=== PATIENT | male | born 1990 | race Two or more races ===

== ENCOUNTER 2016-09-02 20:16 | Emergency (ER) | payer OTHER ==
[~2016-09-02] VITALS: Ht 177.8 cm; Wt 72.6 kg
[~2016-09-02 20:16] MED LIST: IBUPROFEN400 MG ORAL
[2016-09-02] MEDS ORDERED: NKM (20:27)
[2016-09-02 20:39] VITALS: BP 134/86
[2016-09-02] MEDS ORDERED: Bactrim DS (160mg/800mg) tab ORAL ONE (21:00)
[2016-09-02] MEDS ORDERED: cefTRIAXone 1 GM in NS 55 ML IVPB ONE (21:00)
[2016-09-02 21:33] LABS: BASOPHILS % (AUTO) 0.4 % (0.0-2.0); EOSINOPHILS % (AUTO) 0.2 % (0.0-3.0); LYMPHOCYTES % (AUTO) 8.8 % (20.0-45.0); MEAN CORPUSCULAR HEMOGLOBIN 30.6 PG (27.0-31.0); MEAN CORPUSCULAR HGB CONC 33.6 G/DL (32.0-36.0); MEAN CORPUSCULAR VOLUME 91 FL (80-99); MEAN PLATELET VOLUME 7.8 FL (6.5-10.1); MONOCYTES % (AUTO) 7.9 % (1.0-10.0); NEUTROPHILS % (AUTO) 82.8 % (45.0-75.0); PLATELET COUNT 279 K/UL (150-450); RED BLOOD COUNT 4.71 M/UL (4.70-6.10); RED CELL DISTRIBUTION WIDTH 11.1 % (11.6-14.8); WHITE BLOOD COUNT 17.5 K/UL (4.8-10.8)
[2016-09-02 21:44] LABS: ALANINE AMINOTRANSFERASE 17 U/L (3-41); ALBUMIN/GLOBULIN RATIO 1.2 (1.0-2.7); ANION GAP 15 (5-15); ASPARTATE AMINO TRANSFERASE 14 U/L (5-40); CALCIUM 9.5 mg/dL (8.6-10.2); CARBON DIOXIDE 25 mEQ/L (20-30); CHLORIDE 97 mEQ/L (98-107); CREATININE 1.1 mg/dL (0.7-1.2); GLOMERULAR FILTRATION RATE > 60 mL/min (>60); HEMOLYSIS 6; POTASSIUM 3.7 mEQ/L (3.4-4.9); SODIUM 137 mEQ/L (135-145); TOTAL PROTEIN 7.6 g/dL (6.6-8.7)
[2016-09-02] MEDS ORDERED: IBUPROFEN600 MG ORAL (21:51)
[2016-09-02] MEDS ORDERED: KEFLEX500 MG ORAL (21:51)
[2016-09-02] MEDS ORDERED: BACTRIM DS TAB1 EAC1 ORAL (21:51)
[2016-09-02 22:11] VITALS: BP_SYST 129; BP_SYST 134; BP_DIAS 76; BP_DIAS 86
--- NOTE | 2016-09-04 20:36 | Emergency Room Report ---
History of Present Illness General Chief Complaint: Skin Rash/Abscess Source: Patient Present Illness HPI Patient is a 26-year-old male who presented after having a skin rash for the past 3 days. Patient gradual onset of symptoms. Patient stated that he had no prior history of immunocompromise. Patient had reported having some increased pain to the buttock area. He denied any recent trauma. He stated he had previous episode several years ago of staph infection. He denies any IV drug use. Allergies: Coded Allergies: No Known Allergies (Unverified , 08/17/14) Patient History Reviewed Nursing Documentation: PMH: Agreed, PSxH: Agreed Nursing Documentation-PM Past Medical History: No Stated History Review of Systems All Other Systems: negative except mentioned in HPI Physical Exam Vital Signs Date Time Temp Pulse Resp B/P Pulse Ox O2 Delivery O2 Flow Rate FiO2 09/02/16 20:20 100.2 115 18 134/86 96 Room Air Sp02 EP Interpretation: reviewed, normal General Appearance: normal inspection, well appearing, no apparent distress, alert, GCS 15 Head: atraumatic ENT: normal ENT inspection, hearing grossly normal, normal voice Neck: normal inspection, full range of motion, supple, no bony tend Respiratory: normal inspection, lungs clear, normal breath sounds, no respiratory distress, no retraction, no wheezing Cardiovascular #1: regular rate, rhythm, no edema Gastrointestinal: normal inspection, normal bowel sounds, non tender, soft, no guarding, no hernia Genitourinary: no CVA tenderness Musculoskeletal: normal inspection, back normal, normal range of motion Neurologic: normal inspection, alert, oriented x3, responsive, administrative assistant front desk III-XII nml as tested, speech normal Psychiatric: normal inspection, judgement/insight normal, mood/affect normal Skin: no rash, other - small Medical Decision Making Diagnostic Impression: Primary Impression: Cellulitis ER Course Patient presented for skin rash. Differential diagnosis included was not limited to abscess, cellulitis, folliculitis, Fourniere's gangrene,Because of complexity of patient's case laboratory testing and imaging studies were ordered. The patient was given IV fluids as well as IV antibiotics. The patient is advised to have wound rechecked in the next few days. This appears to be a staph infection which does not appear to have abscess formation as of yet.The patient is advised to follow up with primary care doctor in 1-2 days. Patient is advised to return if any worsening condition or if any changes in status that are concerning. Last Vital Signs Date Time Temp Pulse Resp B/P Pulse Ox O2 Delivery O2 Flow Rate FiO2 09/02/16 22:11 100.2 79 18 129/76 98 Room Air Status: improved Disposition: HOME, SELF-CARE Condition: Stable Scripts Ibuprofen* (MOTRIN*) 600 Mg Tablet 600 MG ORAL Q8H Y for For Pain, #30 TAB 0 Refills Prov: Leo Hart 09/02/16 Cephalexin* (KEFLEX*) 500 Mg Capsule 500 MG ORAL EVERY 6 HOURS, #28 CAP 0 Refills Prov: Leo Hart 09/02/16 Trimethoprim/Sulfamethoxazole 160/800* (BACTRIM DS TABLET*) 1 Each Tablet 1 TAB ORAL Q12H, #14 TAB 0 Refills Prov: Leo Hart 09/02/16 Patient Instructions: MRSA Infection, Adult Leo Hart Sep 04, 2016 20:36
== END 2016-09-02 22:11 | disposition home or self-care (01) ==
LOC: EMR 21:41
DX: L03.90 Cellulitis, unspecified (principal)
CPT/HCPCS: 36415; 80053; 85025; 96360; 96374; 99284; J0696

== ENCOUNTER 2016-10-07 19:44 | Emergency (ER) | payer OTHER ==
[~2016-10-07] VITALS: Ht 180.3 cm; Wt 74.8 kg
[~2016-10-07 19:44] MED LIST changes: +BACTRIM DS TAB1 EAC1 ORAL; +IBUPROFEN600 MG ORAL; +KEFLEX500 MG ORAL; +NKM
[2016-10-07] MEDS ORDERED: NKM (20:14)
[2016-10-07 20:18] VITALS: BP 153/96
[2016-10-07 20:42] VITALS: BP 153/96
--- NOTE | 2016-10-07 21:57 | Emergency Room Report ---
History of Present Illness General Chief Complaint: Skin Rash/Abscess Source: Patient Present Illness HPI 26YOM request for herpes test after sexual intercourse with condom with female who told him this morning she has herpes. She is on treatment. No current outbreak. Also had similar exposure to same female 2 weeks ago. Denies dysuria , discharge, rash, ulcers, vesicles or history of STD. Allergies: Coded Allergies: No Known Allergies (Unverified , 08/17/14) Patient History Past Medical History: none Past Surgical History: none Pertinent Family History: none Social History: Denies: alcohol use, drug use, smoking Reviewed Nursing Documentation: PMH: Agreed, PSxH: Agreed Nursing Documentation-PMH Past Medical History: No Stated History Review of Systems All Other Systems: negative except mentioned in HPI Physical Exam Vital Signs Date Time Temp Pulse Resp B/P Pulse Ox O2 Delivery O2 Flow Rate FiO2 10/07/16 20:09 98.2 69 18 153/96 98 Room Air Sp02 EP Interpretation: reviewed, normal General Appearance: normal inspection, well appearing, no apparent distress, alert Head: atraumatic ENT: normal ENT inspection, hearing grossly normal, normal voice Neck: normal inspection, full range of motion, supple, no bony tend Respiratory: normal inspection, lungs clear, normal breath sounds, no respiratory distress, no retraction, no wheezing Cardiovascular #1: regular rate, rhythm, no edema Gastrointestinal: normal inspection, normal bowel sounds, non tender, soft, no guarding, no hernia Genitourinary: no CVA tenderness Musculoskeletal: normal inspection, back normal, normal range of motion, Samira' s Sign negative Neurologic: normal inspection, alert, responsive, speech normal Psychiatric: normal inspection, judgement/insight normal, mood/affect normal Skin: normal inspection, normal color, no rash Lymphatic: normal inspection Medical Decision Making Diagnostic Impression: Primary Impression: Encounter for medical screening examination ER Course Reassured patient unlikely herpes given protected intercourse, asymptomatic Advised to go to [facility] for STD testing Last Vital Signs Date Time Temp Pulse Resp B/P Pulse Ox O2 Delivery O2 Flow Rate FiO2 10/07/16 20:42 98.2 18 153/96 98 Room Air 10/07/16 20:09 69 Status: improved Disposition: HOME, SELF-CARE Condition: Improved Referrals: [facility],REFERRING (PCP) Patient Instructions: Dysuria Additional Instructions: - Please go to nearest [facility] for STD testing - Return to ER for painful urination, penile discharge, weeping open sores on genital area TRICIA MENEZES M.D. Oct 07, 2016 21:57
== END 2016-10-07 20:42 | disposition home or self-care (01) ==
LOC: EMR 20:16
DX: Z11.3 Encounter for screening for infections with a predominantly sexual mode of transmission (principal)
CPT/HCPCS: 99282

== ENCOUNTER 2017-07-15 19:40 | Emergency (ER) | payer OTHER ==
[~2017-07-15] VITALS: Ht 180.3 cm; Wt 72.6 kg
[2017-07-15 20:17] VITALS: BP 120/67
[2017-07-15] MEDS ORDERED: Lidocaine 1% MPF 10mg/ml 5ml INJ ONE (20:30)
--- NOTE | 2017-07-15 20:32 | Emergency Room Report ---
History of Present Illness General Chief Complaint: Male Urogenital Problems Source: Patient Present Illness HPI 27 YO Male Pt. presents to the ED c/o Dysuria and swelling in the left groin area x3 days. Patient reports 5 other 10 in severity dysuria denies penile discharge, rash or lesions. Patient denies fevers, chills, joint pain or abdominal pain. Patient denies testicular pain or swelling. Patient does report on painful cyst in the left testicle. Patient denies recent unprotected intercourse however he is sexually active. Denies hematuria, frequency, or back pain. Denies CP, Palpitations, LOC, AMS, dizziness, Changes in Vision, Sensation , paresthesias, or a sudden severe headache. Allergies: Coded Allergies: No Known Allergies (Unverified , 08/17/14) Patient History Past Medical History: see triage record Past Surgical History: none Pertinent Family History: none Immunizations: UTD Reviewed Nursing Documentation: PMH: Agreed, PSxH: Agreed Nursing Documentation-PMH Past Medical History: No Stated History Review of Systems All Other Systems: negative except mentioned in HPI Physical Exam Vital Signs Date Time Temp Pulse Resp B/P (MAP) Pulse Ox O2 Delivery O2 Flow Rate FiO2 07/15/17 19:53 98.8 76 20 120/67 98 Room Air Sp02 EP Interpretation: reviewed, normal General Appearance: no apparent distress, alert, GCS 15, non-toxic Head: normocephalic, atraumatic Eyes: bilateral eye normal inspection, bilateral eye PERRL ENT: hearing grossly normal, normal voice Neck: full range of motion Respiratory: chest non-tender, lungs clear, normal breath sounds, speaking full sentences Cardiovascular #1: regular rate, rhythm Gastrointestinal: normal bowel sounds, non tender, soft Rectal: deferred Genitourinary: normal inspection, penis normal, scrotum normal, other - Left- sided palpable lymph node versus cyst no erythema in the left inguinal area, no testicular swelling, erythema or external skin lesions. cremasteric reflexes intact. Musculoskeletal: back normal, gait/station normal, normal range of motion, non- tender Neurologic: alert, oriented x3, responsive, motor strength/tone normal, sensory intact, speech normal, grossly normal Psychiatric: judgement/insight normal Skin: normal color, no rash, warm/dry, well hydrated Medical Decision Making PA Attestation Dr. cerda is my supervising Physician whom patient management has been discussed with. Diagnostic Impression: Primary Impression: Urethritis Additional Impression: Swelling, lymph nodes ER Course 27 YO Male Pt. presents to the ED c/o Dysuria and swelling in the left groin area x3 days. Patient reports 5 other 10 in severity dysuria denies penile discharge, rash or lesions. Patient denies fevers, chills, joint pain or abdominal pain. Patient denies testicular pain or swelling. Patient does report on painful cyst in the left testicle. Patient denies recent unprotected intercourse however he is sexually active. Denies hematuria, frequency, or back pain. Denies CP, Palpitations, LOC, AMS, dizziness, Changes in Vision, Sensation , paresthesias, or a sudden severe headache. Ddx considered but are not limited to UTi , Urethritis, LGV, STI, Stone, Cystitis, prostatitis Etl Informatica Developer for PE was: Fausto BULLOCK Vital signs: are WNL, pt. is afebrile H&PE are most consistent with Urethritis ORDERS: none required at this time, benign testicular exam. will treat clinically ED INTERVENTIONS: -250mg Rocephin IM -I do not identify an emergent condition at this time. With current presentation , pt. is stable for close outpatient follow up and conservative treatment. D/ w pt. to return promptly to ED with worsening or new symptoms.- Pt. (and or responsible republican) verbalizes' understanding and agreement with proposed treatment plan.proposed treatment plan. DISCHARGE: At this time pt. is stable for d/c to home. Will provide printed patient care instructions, and any necessary prescriptions. Care plan and follow up instructions have been discussed with the patient prior to discharge. Last Vital Signs Date Time Temp Pulse Resp B/P (MAP) Pulse Ox O2 Delivery O2 Flow Rate FiO2 07/15/17 20:17 98.8 20 120/67 98 Room Air 07/15/17 19:53 76 Disposition: HOME, SELF-CARE Condition: Stable Scripts Phenazopyridine Hcl* (PYRIDIUM*) 200 Mg Tablet 200 MG ORAL THREE TIMES A DAY for 3 Days, #9 TAB 0 Refills Prov: Dennise Kurtz P.A. 07/15/17 Ibuprofen* (MOTRIN*) 600 Mg Tablet 600 MG ORAL THREE TIMES A DAY, #30 TAB 0 Refills Prov: Dennise Kurtz P.A. 07/15/17 Doxycycline Hyclate* (VIBRAMYCIN*) 100 Mg Capsule 100 MG ORAL EVERY 12 HOURS for 7 Days, #14 CAP 0 Refills Prov: Dennise Kurtz 07/15/17 Patient Instructions: Hydrocele, Adult, Urethritis, Adult Additional Instructions: Take medications as directed. Follow up with a Primary Care Provider in 3-5 days, even if your symptoms have resolved. --Please review list of primary care clinics, if you do not already have a primary care provider Return sooner to ED if new symptoms occur, or current symptoms become worse. - Please note that this Emergency Department Report was dictated using [employer]st[employer] keeper technology software, occasionally this can lead to erroneous entry secondary to interpretation by the dictation equipment. Dennise Kurtz Jul 15, 2017 20:32
[2017-07-15] MEDS ORDERED: PHENAZOPYRIDIN200 MG ORAL (20:34)
[2017-07-15] MEDS ORDERED: VIBRAMYCIN100 MG ORAL (20:34)
[2017-07-15] MEDS ORDERED: IBUPROFEN600 MG ORAL (20:34)
[2017-07-15 20:45] VITALS: BP 120/67
== END 2017-07-15 20:45 | disposition home or self-care (01) ==
LOC: EMR 20:00
DX: N34.2 Other urethritis (principal); N50.89 Other specified disorders of the male genital organs
CPT/HCPCS: 96372; 99283; J0696

== ENCOUNTER 2017-12-20 21:50 | Emergency (ER) | payer OTHER ==
[~2017-12-20] VITALS: Ht 180.3 cm; Wt 74.8 kg
[~2017-12-20 21:50] MED LIST changes: +PHENAZOPYRIDIN200 MG ORAL; +VIBRAMYCIN100 MG ORAL
[2017-12-20 22:07] VITALS: BP 131/85
[2017-12-20] MEDS ORDERED: CYCLOBENZAPRINE10 MG ORAL (22:59)
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
[2017-12-20] MEDS ORDERED: Cyclobenzaprine 10mg Tab ORAL ONE (23:15)
[2017-12-20 23:41] VITALS: BP 131/85
== END 2017-12-20 23:41 | disposition home or self-care (01) ==
LOC: EMR 22:21
DX: M54.2 Cervicalgia (principal); V43.52XA Car driver injured in collision with other type car in traffic accident, initial encounter; Y92.410 Unspecified street and highway as the place of occurrence of the external cause; F41.9 Anxiety disorder, unspecified; F32.9 Major depressive disorder, single episode, unspecified
CPT/HCPCS: 99283

== ENCOUNTER 2018-01-02 11:13 | Emergency (ER) | payer OTHER ==
[~2018-01-02] VITALS: Ht 180.3 cm; Wt 72.6 kg
[~2018-01-02 11:13] MED LIST changes: +CYCLOBENZAPRINE10 MG ORAL
[2018-01-02 11:24] VITALS: BP 125/87
[2018-01-02] MEDS ORDERED: BACTRIM DS TAB1 EAC1 ORAL (11:50)
[2018-01-02] MEDS ORDERED: CEPHALEXIN500 MG ORAL (11:50)
[2018-01-02 12:05] VITALS: BP 125/87
--- NOTE | 2018-01-03 07:10 | Emergency Room Report ---
History of Present Illness General Chief Complaint: Skin Rash/Abscess Source: Patient Present Illness HPI 27-year-old male presents to ED with rash to his lower back times one week. States he was told he has "staph". Pain is dull, 5 out of 10, nonradiating. Denies fevers or chills. Denies any discharge. Denies any sick contacts or recent travel. No other aggravating relieving factors. Denies any other associated symptoms Allergies: Coded Allergies: No Known Allergies (Unverified , 08/17/14) Patient History Past Medical History: none Past Surgical History: none Pertinent Family History: none Social History: Denies: smoking, alcohol use, drug use Reviewed Nursing Documentation: PMH: Agreed; PSxH: Agreed Nursing Documentation-PMH Past Medical History: No Stated History Review of Systems All Other Systems: negative except mentioned in HPI Physical Exam Vital Signs Date Time Temp Pulse Resp B/P (MAP) Pulse Ox O2 Delivery O2 Flow Rate FiO2 01/02/18 11:14 97.9 79 16 125/87 96 Room Air 97.9 Sp02 EP Interpretation: reviewed, normal General Appearance: no apparent distress, alert, GCS 15, non-toxic Head: normocephalic Eyes: bilateral eye normal inspection, bilateral eye PERRL ENT: normal ENT inspection Neck: normal inspection Respiratory: normal inspection Cardiovascular #1: normal inspection Gastrointestinal: normal inspection Rectal: deferred Genitourinary: no CVA tenderness Musculoskeletal: normal inspection Neurologic: alert, oriented x3, responsive, motor strength/tone normal, sensory intact, speech normal Psychiatric: judgement/insight normal, memory normal, mood/affect normal, no suicidal/homicidal ideation Skin: other - areas of induration/erythema to L lower back. no fluctuance or discharge Lymphatic: normal inspection Medical Decision Making Diagnostic Impression: Primary Impression: Cellulitis Qualified Codes: L03.90 - Cellulitis, unspecified ER Course Hospital Course 27-year-old male presents to ED with redness, swelling to back Differential diagnoses include: Cellulitis, dermatitis, insect bite, abscess Clinical course Patient placed on stretcher. After initial history, physical exam reveals a young male in no acute distress. On exam there is a site for mild erythema and induration to the L lower back. There is no fluctuance. concern for cellulitis. we will treat with abx, warm compresses Diagnosis - cellulitis stable and discharged to home with prescription for keflex, bactrim. warm compresses. Instructed to followup with PMD. Instructed return to ED if symptoms recur or worsen Last Vital Signs Date Time Temp Pulse Resp B/P (MAP) Pulse Ox O2 Delivery O2 Flow Rate FiO2 01/02/18 12:05 97.9 74 16 125/87 96 Room Air 97.9 Status: improved Disposition: HOME, SELF-CARE Condition: Stable Scripts Trimethoprim/Sulfamethoxazole 160/800* (BACTRIM DS TABLET*) 1 Each Tablet 1 TAB ORAL Q12H, #14 TAB 0 Refills Prov: Chase Buenrostro MD 01/02/18 Cephalexin* (KEFLEX*) 500 Mg Capsule 500 MG ORAL EVERY 6 HOURS for 7 Days, CAP Prov: Chase Buenrostro MD 01/02/18 Referrals: [facility],REFERRING (PCP) Patient Instructions: Cellulitis, [id number] Chase Buenrostro MD Jan 03, 2018 07:10
== END 2018-01-02 12:05 | disposition home or self-care (01) ==
LOC: EMR 11:45
DX: L03.312 Cellulitis of back [any part except buttock and flank] (principal)
CPT/HCPCS: 99284

== ENCOUNTER 2018-01-25 12:27 | Emergency (ER) | payer OTHER ==
[~2018-01-25] VITALS: Ht 180.3 cm; Wt 72.6 kg
[~2018-01-25 12:27] MED LIST changes: +CEPHALEXIN500 MG ORAL
[2018-01-25 12:58] VITALS: BP 112/79
--- NOTE | 2018-01-25 13:12 | Emergency Room Report ---
History of Present Illness General Chief Complaint: Skin Rash/Abscess Source: Patient Present Illness HPI Pt. presents to the ED c/o itchy rash on the neck x 3 days. Denies pain. Reports he was treated for cellulitis of a different location and finished abx 1 week ago: Keflex and Bactrim. Pt. denies fevers, chills or swollen tender lymph nodes. Denies lesions/rashes elsewhere on the body. Denies new medications or body washes or creams. Denies swelling of the lips, tongue , throat or airway. Denies wheezing, or shortness of breath. Denies recent travel , recent illness or ill contacts. denies blisters, oral lesions, or sloughing of the skin. Allergies: Coded Allergies: No Known Allergies (Unverified , 08/17/14) Patient History Past Medical History: see triage record Past Surgical History: none Pertinent Family History: none Reviewed Nursing Documentation: PMH: Agreed; PSxH: Agreed Nursing Documentation-PMH Hx Cardiac Problems: No - cellulitis Review of Systems All Other Systems: negative except mentioned in HPI Physical Exam Vital Signs Date Time Temp Pulse Resp B/P (MAP) Pulse Ox O2 Delivery O2 Flow Rate FiO2 01/25/18 12:46 98.0 67 18 112/79 97 Room Air 98.1 Sp02 EP Interpretation: reviewed, normal General Appearance: no apparent distress, alert, GCS 15, non-toxic Head: normocephalic, atraumatic Eyes: bilateral eye normal inspection, bilateral eye PERRL ENT: hearing grossly normal, no angioedema, normal voice, other - no swelling of the lips or tongue. no stridor Neck: full range of motion, other - urticarial type rash around the lower portion of neck and upper chest. no blisters or vesicles. Respiratory: chest non-tender, lungs clear, normal breath sounds, no respiratory distress, no wheezing, speaking full sentences Cardiovascular #1: regular rate, rhythm, no edema Musculoskeletal: back normal, gait/station normal, normal range of motion, non- tender Neurologic: alert, oriented x3, responsive, motor strength/tone normal, sensory intact, speech normal, grossly normal Psychiatric: judgement/insight normal Skin: normal color, warm/dry, well hydrated, rash - urticarial type rash around the lower portion of neck and upper chest. no blisters or vesicles. Lymphatic: no adenopathy Medical Decision Making PA Attestation Dr. cerda is my supervising Physician whom patient management has been discussed with. Diagnostic Impression: Primary Impression: Contact dermatitis Qualified Codes: L24.9 - Irritant contact dermatitis, unspecified cause Additional Impression: Rash and other nonspecific skin eruption ER Course Pt. presents to the ED c/o itchy rash on the neck x 3 days. Denies pain. Reports he was treated for cellulitis of a different location and finished abx 1 week ago: Keflex and Bactrim. Pt. denies fevers, chills or swollen tender lymph nodes. Denies lesions/rashes elsewhere on the body. Denies new medications or body washes or creams. Denies swelling of the lips, tongue , throat or airway. Denies wheezing, or shortness of breath. Denies recent travel , recent illness or ill contacts. denies blisters, oral lesions, or sloughing of the skin. Ddx considered but are not limited to cellulitis, scabies, shingles, varicella, dermatitis, urticaria, eczema, tinea, viral exanthem, SJS Vital signs: are WNL, pt. is afebrile H&PE are most consistent with Contact Dermatitis- No evidence of impending airway compromise, angioedema or anaphylaxis. urticarial type rash around the lower portion of neck and upper chest. no blisters or vesicles. ORDERS: none required at this time, the diagnosis is clinical ED INTERVENTIONS: None required at this time. DISCHARGE: At this time pt. is stable for d/c to home. Will provide printed patient care instructions, and any necessary prescriptions. Care plan and follow up instructions have been discussed with the patient prior to discharge. Last Vital Signs Date Time Temp Pulse Resp B/P (MAP) Pulse Ox O2 Delivery O2 Flow Rate FiO2 01/25/18 12:58 98.1 80 18 112/79 97 Room Air 98.1 Disposition: HOME, SELF-CARE Condition: Stable Scripts Prednisone (Prednisone) 20 Mg Tablet 20 MG PO DAILY for 3 Days, #3 TAB Prov: Dennise Kurtz 01/25/18 Hydroxyzine HCl (Hydroxyzine HCl) 25 Mg Tablet 25 MG ORAL FOUR TIMES A DAY PRN for Itching, #15 TAB Prov: Dennise Kurtz 01/25/18 Hydrocortisone (Hydrocortisone Cream 2.5%) Y Cream.appl 1 APPLIC TP BID, #28.3 GM Prov: Dennise Kurtz 01/25/18 Departure Forms: Return to Work Return to Work Date: Jan 28, 2018 Work Restrictions: None Return to Full Activity: Jan 28, 2018 Patient Instructions: Contact Dermatitis, [id number], Rash Additional Instructions: Take medications as directed. Follow up with a Primary Care Provider in 3-5 days, even if your symptoms have resolved. --Please review list of primary care clinics, if you do not already have a primary care provider Return sooner to ED if new symptoms occur, or current symptoms become worse. - Please note that this Emergency Department Report was dictated using [facility] Centers[employer] office operator supervisor technology software, occasionally this can lead to erroneous entry secondary to interpretation by the dictation equipment. Dennise Kurtz Jan 25, 2018 13:12
[2018-01-25] MEDS ORDERED: PREDNISONE20 M1 PO (13:14)
[2018-01-25] MEDS ORDERED: HYDROCORTISONE30 G2 TP (13:14)
[2018-01-25] MEDS ORDERED: ATARAX25 MG ORAL (13:14)
[2018-01-25 13:25] VITALS: BP 112/79
== END 2018-01-25 13:24 | disposition home or self-care (01) ==
LOC: EMR 13:00
DX: L25.9 Unspecified contact dermatitis, unspecified cause (principal)
CPT/HCPCS: 99283

== ENCOUNTER 2018-03-13 11:26 | Emergency (ER) | payer OTHER ==
[~2018-03-13] VITALS: Ht 180.3 cm; Wt 72.6 kg
[~2018-03-13 11:26] MED LIST changes: +ATARAX25 MG ORAL; +HYDROCORTISONE30 G2 TP; +PREDNISONE20 M1 PO
[2018-03-13] MEDS ORDERED: Methocarbamol 500mg tab ORAL ONE (12:15)
[2018-03-13] MEDS: Ketorolac 30mg Inj IM ONE ×2 (12:25→12:30)
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
[2018-03-13] MEDS ORDERED: IBUPROFEN600 MG ORAL (13:20)
[2018-03-13] MEDS ORDERED: LIDOCAINE700 M1 TP (13:20)
[2018-03-13] MEDS ORDERED: ROBAXIN500 MG PO (13:20)
[2018-03-13] MEDS ORDERED: Ketorolac 30mg Inj IM ONE (13:30)
[2018-03-13] MEDS ORDERED: Ketorolac 30mg Inj ONE (13:31)
[2018-03-13 13:37] VITALS: BP 122/80
== END 2018-03-13 13:37 | disposition home or self-care (01) ==
LOC: EMR 12:20
DX: M62.838 Other muscle spasm (principal); M54.2 Cervicalgia; M54.9 Dorsalgia, unspecified; V43.62XA Car passenger injured in collision with other type car in traffic accident, initial encounter; W22.12XA Striking against or struck by front passenger side automobile airbag, initial encounter; Y92.411 Interstate highway as the place of occurrence of the external cause
CPT/HCPCS: 72125; 99284; J1885

== ENCOUNTER 2018-03-24 18:37 | Emergency (ER) | payer OTHER ==
[~2018-03-24] VITALS: Ht 180.3 cm; Wt 77.1 kg
[~2018-03-24 18:37] MED LIST changes: +LIDOCAINE700 M1 TP; +ROBAXIN500 MG PO
[2018-03-24 19:14] VITALS: BP 136/81
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
[2018-03-24] MEDS ORDERED: ZYRTEC10 MG ORAL (20:05)
[2018-03-24] MEDS ORDERED: LIDOCAINE VISC100 ML ORAL (20:05)
[2018-03-24] MEDS ORDERED: TYLENOL EXTRA500 MG ORAL (20:05)
[2018-03-24 20:19] VITALS: BP 136/81
[2018-03-24] MEDS ORDERED: KETOCONAZOLE120 ML TP (20:19)
== END 2018-03-24 20:27 | disposition home or self-care (01) ==
LOC: EMR 19:29
DX: J02.9 Acute pharyngitis, unspecified (principal); R09.82 Postnasal drip
CPT/HCPCS: 99283

== ENCOUNTER 2018-11-28 21:48 | Emergency (ER) | payer OTHER ==
[~2018-11-28] VITALS: Ht 177.8 cm; Wt 77.1 kg
[~2018-11-28 21:48] MED LIST changes: +KETOCONAZOLE120 ML TP; +LIDOCAINE VISC100 ML ORAL; +TYLENOL EXTRA500 MG ORAL; +ZYRTEC10 MG ORAL
--- NOTE | 2018-11-28 22:05 | NUR ---
ER Nurse Note: Pt coming from home c/o chest pain since 3 weeks ago. Pt stated the pain is constant aching pain from movement on the left side of chest, non radiating. Skin intact, no signs of distress, VSS. Pt stated hx of heart surgery 4 years ago. EKG done; LINDA de león. ERMD at pt side; will continue to montior.
[2018-11-28 22:15] VITALS: BP 120/81
[2018-11-28] MEDS ORDERED: ADVIL200 M2 ORAL (22:35)
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
--- NOTE | 2018-11-28 22:43 | Diagnostic Imaging Report ---
EXAM: XR Chest, 1 View CLINICAL HISTORY: CP TECHNIQUE: Frontal view of the chest. COMPARISON: CT scan 05/30/16 FINDINGS: Lungs: No visualized consolidation. Pleural space: No significant effusion. No pneumothorax. Heart: Stable cardiomediastinal silhouette size and appearance with vascular graft noted in the proximal descending aorta. Mediastinum: See above. Bones/joints: No acute findings. IMPRESSION: No acute radiographic findings.
[2018-11-28 22:50] VITALS: BP 120/81
--- NOTE | 2018-11-28 22:50 | NUR ---
ER Nurse Note: All orders completed per ERMD orders. Pt seen, treated, medically cleared for discharge by ERMD. Discharge instructions and prescriptions given with repeat verbazliaion by pt. Instructed pt to follow up with primary care provider within 2-3 days. Pt a&ox4, VSS, no signs of distress; denies shortness of breath, chest pain. ID band removed. Pt left with all belongings with steady gait via own transportation.
== END 2018-11-28 22:50 | disposition home or self-care (01) ==
LOC: EMR 22:13
DX: R07.9 Chest pain, unspecified (principal); I10 Essential (primary) hypertension
CPT/HCPCS: 71045; 93005; 99283

== ENCOUNTER 2019-06-17 17:42 | Emergency (ER) | payer OTHER ==
[~2019-06-17] VITALS: Ht 180.3 cm; Wt 79.4 kg
[~2019-06-17 17:42] MED LIST changes: +ADVIL200 M2 ORAL
[2019-06-17 18:00] VITALS: BP 120/84
[2019-06-17 18:10] VITALS: BP 120/84
--- NOTE | 2019-06-17 18:10 | NUR ---
ED Nurse Note: Patient arrived to ED from home complaining of body aches, diarrhea, fever for 1 day. He states that the s/s started yesterday evening. Patient's appetite has been decreased . Patient AxO x 4, resting comfortably, no s/s of acute distress.
--- NOTE | 2019-06-17 18:27 | Emergency Room Report ---
History of Present Illness General Chief Complaint: Flu Like Symptoms Source: Patient Present Illness HPI 29-year-old male with no significant past medical history here complaining of 2 days of generalized body ache, epigastric abdominal pain, 3 bouts of nonbloody emesis, and 2 bouts of nonbloody diarrhea. Also complains of cough and congestion. Reports that has not taken medication for symptom relief. Patient reports that he smokes tobacco daily as well as marijuana use. Denies any recent travel or sick contact. Denies chest pain, shortness of breath, palpitation, urinary symptoms. Allergies: Coded Allergies: No Known Allergies (Unverified , 03/24/18) Patient History Past Medical History: see triage record Past Surgical History: unable to obtain Pertinent Family History: none Social History: Reports: smoking Reviewed Nursing Documentation: PMH: Agreed; PSxH: Agreed Nursing Documentation-PMH Past Medical History: No History, Except For Hx Cardiac Problems: Yes - aorta surgery Hx Hypertension: Yes Hx Asthma: No - pneumonia Review of Systems All Other Systems: negative except mentioned in HPI Physical Exam Vital Signs Date Time Temp Pulse Resp B/P (MAP) Pulse Ox O2 Delivery O2 Flow Rate FiO2 06/17/19 17:53 100.2 104 20 119/84 (96) 95 Room Air Sp02 EP Interpretation: reviewed, normal General Appearance: no apparent distress, alert, GCS 15, non-toxic Head: normocephalic, atraumatic Eyes: bilateral eye normal inspection, bilateral eye PERRL ENT: hearing grossly normal, normal pharynx, no angioedema, normal voice Neck: full range of motion, supple, no meningismus, no bony tend, supple/symm/ no masses Respiratory: chest non-tender, lungs clear, normal breath sounds, no rhonchi, no respiratory distress, no retraction, no wheezing, speaking full sentences Cardiovascular #1: regular rate, rhythm, no edema, no JVD, no murmur Gastrointestinal: normal bowel sounds, non tender, soft, no mass, no peritonitis, no bruit, non-distended, no guarding, no pulsatile mass, no rebound Rectal: deferred Genitourinary: no CVA tenderness Musculoskeletal: back normal, normal range of motion, gait/station normal, non- tender Neurologic: alert, motor strength/tone normal, oriented x3, sensory intact, responsive, speech normal Psychiatric: judgement/insight normal, memory normal, mood/affect normal, no suicidal/homicidal ideation Skin: no rash Lymphatic: no adenopathy Medical Decision Making PA Attestation All my diagnosis and treatment plans were reviewed ad discussed with my supervising physician Dr. Buenrostro Diagnostic Impression: Primary Impression: Influenza Additional Impression: Abdominal pain ER Course 29-year-old male with no significant past medical history here complaining of 2 days of generalized body ache, epigastric abdominal pain, 3 bouts of nonbloody emesis, and 2 bouts of nonbloody diarrhea. Also complains of cough and congestion. Reports that has not taken medication for symptom relief. Patient reports that he smokes tobacco daily as well as marijuana use. Denies any recent travel or sick contact. Denies chest pain, shortness of breath, palpitation, urinary symptoms. Ddx considered but are not limited to: strep pharyngitis, URI, tonsillitis, peritonsillar abscess, influneza Vital signs: are WNL, pt. is afebrile H&PE are most consistent with: Influenza ORDERS: Tamiflu, guaifenesin ,Zofran, dicyclomine ED INTERVENTIONS: None required at this time. DISCHARGE: At this time pt. is stable for d/c to home. Will provide printed patient care instructions, and any necessary prescriptions. Care plan and follow up instructions have been discussed with the patient prior to discharge. keep a BRAT Diet, increase oral hydration, take medication as directed, follow- up with your primary care physician, if worsening symptoms return to the emergency room Last Vital Signs Date Time Temp Pulse Resp B/P (MAP) Pulse Ox O2 Delivery O2 Flow Rate FiO2 06/17/19 17:53 100.2 104 20 119/84 (96) 95 Room Air Disposition: HOME, SELF-CARE Condition: Stable Scripts Guaifenesin* (GUAIFENESIN) 100 Mg/5 Ml Liquid 5 ML ORAL Q8H, #120 ML 0 Refills Prov: Mirza Caldwell 06/17/19 Dicyclomine Hcl* (DICYCLOMINE HCL*) 10 Mg Capsule 10 MG ORAL TID, #10 CAP Prov: Mirza Caldwell 06/17/19 Ondansetron (Zofran) 4 Mg Tablet 4 MG ORAL Q6H PRN for Nausea & Vomiting, #12 TAB Prov: Mirza Caldwell 06/17/19 Oseltamivir Phosphate (Tamiflu) 75 Mg Capsule 75 MG ORAL TWICE A DAY for 5 Days, #10 CAP Prov: Mirza Caldwell 06/17/19 Patient Instructions: Abdominal Pain, Adult, [id number], Food Choices to Help Relieve Diarrhea, Adult, Upper Respiratory Infection, Adult Additional Instructions: Take medication as directed, follow with your primary care provider, if worsening symptoms return to the emergency room Mirza Caldwell Jun 17, 2019 18:27
[2019-06-17] MEDS ORDERED: GUAIFENESI100 MG/5 M ORAL (18:28)
[2019-06-17] MEDS ORDERED: ZOFRAN4 M1 ORAL (18:28)
[2019-06-17] MEDS ORDERED: DICYCLOMINE HCL10 MG ORAL (18:28)
[2019-06-17] MEDS ORDERED: TAMIFLU75 MG ORAL (18:28)
[2019-06-17 18:31] VITALS: BP 122/80
--- NOTE | 2019-06-17 18:31 | NUR ---
ER DISCHARGE NOTE: Patient is cleared to be discharged per ERMD, pt is aox4, on room air, with stable vital signs. pt was given dc and prescription instructions, pt was able to verbalize understanding, pt id band removed without complications. pt is able to ambulate with steady gait. pt took all belongings.
== END 2019-06-17 18:31 | disposition home or self-care (01) ==
LOC: EMR 18:30
DX: J11.1 Influenza due to unidentified influenza virus with other respiratory manifestations (principal); R10.13 Epigastric pain; I10 Essential (primary) hypertension; F17.200 Nicotine dependence, unspecified, uncomplicated
CPT/HCPCS: 99282

== ENCOUNTER 2019-11-23 15:59 | Emergency (ER) | payer OTHER ==
[~2019-11-23] VITALS: Ht 177.8 cm; Wt 79.4 kg
[~2019-11-23 15:59] MED LIST changes: +DICYCLOMINE HCL10 MG ORAL; +GUAIFENESI100 MG/5 M ORAL; +TAMIFLU75 MG ORAL; +ZOFRAN4 M1 ORAL
--- NOTE | 2019-11-23 16:10 | NUR ---
ED Nurse Note: pt walked in from home c/o sore throat x 4 days. pt had video chat with PCP who prescribed him augmentin a few days ago, no imporvement of symptoms. denies cough. reports difficulty swallowing, 10/10 pain
[2019-11-23 16:13] VITALS: BP 142/94
--- NOTE | 2019-11-23 16:35 | Emergency Room Report ---
History of Present Illness General Chief Complaint: Sore Throat Source: Patient Present Illness HPI 29 YO male presents to the ED c/o 04/[address] x 4 days. Pt. reports he has been taking Augmentin x 4 days which was rx'd to him along with "street pain medications". with little to no relief of his symptoms. Pt. denies fevers. He reports burning sensation and moderate tenderness to the roof of his mouth and his throat. He denies hx of HIV or immune compromise. Pt. denies changes in his voice. Pt. denies inability to tolerate his own secretions. He denies visible sores in his mouth. Denies recent travel. Denies contact with persons who have tested positive for or are under investigation/quarantine for COVID- 19. He reports pain is exacerbated with swallowing /eating. Reports pain is bilateral and not worse on one side. Pt. denies cough, nasal congestion, neck pain/stiffness. Denies nausea or vomiting. 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 Patient History Past Medical History: see triage record Past Surgical History: none Pertinent Family History: none Social History: Reports: smoking Reviewed Nursing Documentation: PMH: Agreed; PSxH: Agreed Nursing Documentation-PMH Hx Cardiac Problems: Yes - aorta surgery Hx Hypertension: Yes Hx Asthma: No - pneumonia Review of Systems All Other Systems: negative except mentioned in HPI Physical Exam Vital Signs Date Time Temp Pulse Resp B/P (MAP) Pulse Ox O2 Delivery O2 Flow Rate FiO2 11/23/19 16:10 98.8 85 19 142/94 (110) 96 Room Air Sp02 EP Interpretation: reviewed, normal General Appearance: no apparent distress, alert, GCS 15, non-toxic Head: normocephalic, atraumatic Eyes: bilateral eye normal inspection, bilateral eye PERRL ENT: hearing grossly normal, normal voice, uvula midline, moist mucus membranes , pharyngeal erythema, other - mild strawberry tongue appearance, no exudates no appreciable swelling of the tonsills bilaterally. no oral lesions noted. Neck: full range of motion, no meningismus Respiratory: chest non-tender, lungs clear, normal breath sounds, no respiratory distress, no wheezing, speaking full sentences Cardiovascular #1: regular rate, rhythm Musculoskeletal: normal range of motion, gait/station normal, non-tender Neurologic: alert, motor strength/tone normal, oriented x3, sensory intact, responsive, speech normal Psychiatric: judgement/insight normal Skin: no rash, normal color Lymphatic: no adenopathy Medical Decision Making PA Attestation Dr. Hooper is my supervising Physician whom patient management has been discussed with. Diagnostic Impression: Primary Impression: Sore throat Additional Impression: Esophagitis, acute ER Course 29 YO male presents to the ED c/o 04/[address] x 4 days. Pt. reports he has been taking Augmentin x 4 days which was rx'd to him along with "street pain medications". with little to no relief of his symptoms. Pt. denies fevers. He reports burning sensation and moderate tenderness to the roof of his mouth and his throat. He denies hx of HIV or immune compromise. Pt. denies changes in his voice. Pt. denies inability to tolerate his own secretions. He denies visible sores in his mouth. Denies recent travel. Denies contact with persons who have tested positive for or are under investigation/quarantine for COVID- 19. He reports pain is exacerbated with swallowing /eating. Reports pain is bilateral and not worse on one side. Pt. denies cough, nasal congestion, neck pain/stiffness. Denies nausea or vomiting. Ddx considered but are not limited to: pharyngitis, strep, BRIDGE MECHANIC, ludwigs angina, URI Vital signs: are WNL, pt. is afebrile H&PE are most consistent with: esophagitis most likely viral in etiology. Pt. does not meet Centor criteria, He is also already taking appropriate antibiotic for strep. No obvious visible or palpable abscess noted. Pt. NAD, non-toxic in appearance. Pt. is able to tolerate his own secretions and speak full sentences with a normal voice. ORDERS: None required at this time as the diagnosis is clinical ED INTERVENTIONS: -Lidocaine Viscous PO -I do not identify an emergent condition at this time. With current presentation , pt. is stable for close outpatient follow up and conservative treatment. D/ w pt. to return promptly to ED with worsening or new symptoms.- Pt. verbalizes' understanding and agreement with proposed treatment plan. D/w pt. signs and symptoms that would represents developing abscess. DISCHARGE: At this time pt. is stable for d/c to home. Will provide printed patient care instructions, and any necessary prescriptions. Care plan and follow up instructions have been discussed with the patient prior to discharge. Last Vital Signs Date Time Temp Pulse Resp B/P (MAP) Pulse Ox O2 Delivery O2 Flow Rate FiO2 11/23/19 16:13 98.8 85 19 142/94 96 Room Air Disposition: HOME, SELF-CARE Condition: Stable Scripts Acyclovir* (ACYCLOVIR*) 400 Mg Tablet 400 MG ORAL FIVE TIMES A DAY for 7 Days, #28 TAB Prov: Dennise Kurtz 11/23/19 Ibuprofen* (MOTRIN*) 600 Mg Tablet 600 MG ORAL THREE TIMES A DAY, #30 TAB Prov: Dennise Kurtz 11/23/19 Lidocaine HCl 2% Viscous (Lidocaine HCl 2% Viscous) 100 Ml Solution 10 ML ORAL QID, #220 ML Prov: Dennise Kurtz 11/23/19 Referrals: NOT CHOSEN [facility],REFERRING (PCP) Patient Instructions: Esophagitis, Sore Throat Additional Instructions: Take medications as directed. Discontinue taking medications that are not prescribed to you. Xanax is for psychological disorders, not a sore throat. Follow up with a Primary Care Provider in 3-5 days, even if your symptoms have resolved. --Please review list of primary care clinics, if you do not already have a primary care provider Return sooner to ED if new symptoms occur, or current symptoms become worse. - Please note that this Emergency Department Report was dictated using [employer] hand technology software, occasionally this can lead to erroneous entry secondary to interpretation by the dictation equipment. Dennise Kurtz November 23, 2019 16:35
[2019-11-23] MEDS ORDERED: Lidocaine 2% Visc 15ml soln ORAL ONE (16:45)
[2019-11-23] MEDS ORDERED: ACYCLOVIR400 MG ORAL (16:46)
[2019-11-23] MEDS ORDERED: IBUPROFEN600 M1 ORAL (16:46)
[2019-11-23] MEDS ORDERED: LIDOCAINE VISC100 ML ORAL (16:46)
[2019-11-23 16:50] VITALS: BP 142/94
== END 2019-11-23 16:50 | disposition home or self-care (01) ==
LOC: EMR 16:24
DX: R07.0 Pain in throat (principal); F17.200 Nicotine dependence, unspecified, uncomplicated; I10 Essential (primary) hypertension; K22.4 Dyskinesia of esophagus
CPT/HCPCS: 99282

== ENCOUNTER 2020-04-21 01:07 | Emergency (ER) | payer OTHER ==
[~2020-04-21] VITALS: Ht 180.3 cm; Wt 77.1 kg
[~2020-04-21 01:07] MED LIST changes: +ACYCLOVIR400 MG ORAL; +IBUPROFEN600 M1 ORAL
[2020-04-21 01:15] VITALS: BP 112/67
--- NOTE | 2020-04-21 01:37 | Emergency Room Report ---
History of Present Illness General Chief Complaint: Dizziness Source: Patient Present Illness HPI This is a 29-year-old male with no past medical history his presents with chief complaint of fever chills. Onset in the last few hours. He felt body pain. No cough or congestion. He said for the last few days he has burning sensation when he urinate. No discharge. No back pain. Has not take anything for this. Said he felt dizzy per especially when he get up and walk. Denies any sick contact. Allergies: Coded Allergies: No Known Allergies (Unverified , 03/24/18) COVID-19 Screening Contact w/high risk pt: No Recent Travel to affected area: No Experienced COVID-19 symptoms?: No COVID-19 Testing performed DRILL HAND: No Patient History Past Medical History: see triage record, old chart reviewed Past Surgical History: none Pertinent Family History: none Social History: Denies: smoking Immunizations: other Reviewed Nursing Documentation: PMH: Agreed; PSxH: Agreed Nursing Documentation-PMH Past Medical History: No Stated History Hx Cardiac Problems: Yes - aorta surgery Hx Hypertension: Yes Hx Asthma: No - pneumonia Review of Systems Constitutional: Reports: chills, fever Eye: Denies: eye pain, blurred vision ENT: Denies: ear pain, nose congestion, throat swelling Respiratory: Denies: cough, shortness of breath Cardiovascular: Denies: chest pain, palpitations Gastrointestinal: Denies: abdominal pain, diarrhea, nausea, vomiting Musculoskeletal: Denies: back pain, joint pain Skin: Denies: rash Neurological: Denies: headache, numbness Endocrine: Denies: increased thirst, increased urine Hematologic/Lymphatic: Denies: easy bruising All Other Systems: negative except mentioned in HPI Physical Exam Vital Signs Date Time Temp Pulse Resp B/P (MAP) Pulse Ox O2 Delivery O2 Flow Rate FiO2 04/21/20 01:15 98.6 102 20 112/67 (82) 94 Room Air Vitals normal Sp02 EP Interpretation: reviewed, normal General Appearance: well appearing, no apparent distress, alert Head: normocephalic, atraumatic Eyes: bilateral eye PERRL, bilateral eye EOMI ENT: hearing grossly normal, normal pharynx Neck: full range of motion, supple, no meningismus Respiratory: chest non-tender, lungs clear, normal breath sounds Cardiovascular #1: regular rate, rhythm, no murmur Gastrointestinal: normal bowel sounds, non tender, no mass, no organomegaly, no bruit, non-distended Musculoskeletal: back normal, normal range of motion, gait/station normal Psychiatric: mood/affect normal Medical Decision Making Diagnostic Impression: Primary Impression: UTI (urinary tract infection) Qualified Codes: N30.00 - Acute cystitis without hematuria ER Course Patient presents with myalgia and subjective fever and chills. He does have a urinary tract infection. Antibiotics given here. Will discharge home. No evidence of pyelonephritis. No evidence of any sepsis. Last Vital Signs Date Time Temp Pulse Resp B/P (MAP) Pulse Ox O2 Delivery O2 Flow Rate FiO2 04/21/20 01:15 98.6 102 20 112/67 (82) 94 Room Air Status: improved Disposition: HOME, SELF-CARE Condition: Stable Scripts Ibuprofen* (MOTRIN*) 600 Mg Tablet 600 MG ORAL Q6H PRN for For Pain, #30 TAB 0 Refills Prov: Benny Bradford MD 04/21/20 Cephalexin* (KEFLEX*) 500 Mg Capsule 500 MG ORAL TID, #21 CAP Prov: Benny Bradford MD 04/21/20 Referrals: [facility],REFERRING (PCP) Additional Instructions: Increase fluids. Follow with your doctor in 7 days. Return if symptoms worsen. Benny Bradford MD Apr 21, 2020 01:37
[2020-04-21] MEDS ORDERED: Acetaminophen 500mg (ES) tab ORAL ONE (01:45)
[2020-04-21 02:10] LABS: BASOPHILS % (AUTO) 1.4 % (0.0-2.0); EOSINOPHILS % (AUTO) 0.1 % (0.0-3.0); HEMATOCRIT 37.4 % (42.0-52.0); LYMPHOCYTES % (AUTO) 11.1 % (20.0-45.0); MEAN CORPUSCULAR VOLUME 90 FL (80-99); MONOCYTES % (AUTO) 4.7 % (1.0-10.0); NEUTROPHILS % (AUTO) 82.8 % (45.0-75.0); PLATELET COUNT 117 K/UL (150-450); RED BLOOD COUNT 4.17 M/UL (4.70-6.10); RED CELL DISTRIBUTION WIDTH 12.1 % (11.6-14.8); WHITE BLOOD COUNT 11.4 K/UL (4.8-10.8)
[2020-04-21 02:20] LABS: ANION GAP 8 mmol/L (5-15); BLOOD UREA NITROGEN 13 mg/dL (7-18); CARBON DIOXIDE 26 MMOL/L (21-32); CHLORIDE 101 MMOL/L (98-107); CREATININE 1.2 MG/DL (0.55-1.30); POTASSIUM 5.2 MMOL/L (3.5-5.1); SODIUM 135 MMOL/L (136-145)
[2020-04-21 02:23] LABS: BILIRUBIN, URINE NEGATIVE (NEGATIVE); COLOR,URINE PALE YELLOW; GLUCOSE, URINE (UA) NEGATIVE (NEGATIVE); KETONES,URINE NEGATIVE (NEGATIVE); LEUKOCYTE ESTERASE ,URINE 3+ (NEGATIVE); NITRITE,URINE NEGATIVE (NEGATIVE); PH,URINE 6.5 (4.5-8.0); PROTEIN,URINE NEGATIVE (NEGATIVE); UROBILINOGEN,URINE NORMAL MG/DL (0.0-1.0)
[2020-04-21 02:38] LABS: APPEARANCE,URINE CLOUDY
[2020-04-21] MEDS ORDERED: IBUPROFEN600 M1 ORAL (02:45)
[2020-04-21] MEDS ORDERED: CEPHALEXIN500 MG ORAL (02:45)
[2020-04-21] MEDS ORDERED: cefTRIAXone 1 GM in NS 55 ML IVPB ONE (02:45)
[2020-04-21 03:25] VITALS: BP 112/67
== END 2020-04-21 03:25 | disposition home or self-care (01) ==
LOC: EMR 01:31
DX: N30.00 Acute cystitis without hematuria (principal); I10 Essential (primary) hypertension; Z98.890 Other specified postprocedural states
CPT/HCPCS: 36415; 80048; 81001; 85025; 87086; 96361; 96365; J0696; J7030; U0002; Z7502; 99284

== ENCOUNTER 2020-07-30 12:58 | Emergency (ER) | payer OTHER ==
[~2020-07-30] VITALS: Ht 180.3 cm; Wt 81.6 kg
[2020-07-30] MEDS ORDERED: Ketorolac 30mg Inj IV ONE (13:15)
--- NOTE | 2020-07-30 13:30 | NUR ---
ED Nurse Note: c/o n/v/d, states he took ectacy last night, consumed alcohol and smoked marijuana. last drink was at 0500 this morning. hx of aortic tear that was repaired in 2015 with a stent. education given in regards to alcohol and drug use with his medical hx
[2020-07-30 13:45] LABS: APPEARANCE,URINE CLEAR; BILIRUBIN, URINE NEGATIVE (NEGATIVE); COLOR,URINE PALE YELLOW; GLUCOSE, URINE (UA) NEGATIVE (NEGATIVE); KETONES,URINE 4+ (NEGATIVE); LEUKOCYTE ESTERASE ,URINE NEGATIVE (NEGATIVE); NITRITE,URINE NEGATIVE (NEGATIVE); PH,URINE 5 (4.5-8.0); PROTEIN,URINE 2+ (NEGATIVE); UROBILINOGEN,URINE NORMAL MG/DL (0.0-1.0)
[2020-07-30 13:47] LABS: BASOPHILS % (AUTO) 0.3 % (0.0-2.0); HEMATOCRIT 48.5 % (42.0-52.0); HEMOGLOBIN 15.5 G/DL (14.2-18.0); LYMPHOCYTES % (AUTO) 12.4 % (20.0-45.0); MEAN CORPUSCULAR VOLUME 93 FL (80-99); MONOCYTES % (AUTO) 3.9 % (1.0-10.0); NEUTROPHILS % (AUTO) 83.4 % (45.0-75.0); PLATELET COUNT 280 K/UL (150-450); RED BLOOD COUNT 5.21 M/UL (4.70-6.10); RED CELL DISTRIBUTION WIDTH 12.8 % (11.6-14.8); WHITE BLOOD COUNT 11.8 K/UL (4.8-10.8)
--- NOTE | 2020-07-30 13:53 | Emergency Room Report ---
History of Present Illness General Chief Complaint: Alcohol Intoxication Source: Patient Present Illness HPI 30-year-old male with history of ruptured aortic reports having a "heart surgery 3 years ago" and hypertension noncompliant with medication here complaining of chest pain or palpitation after taking the pill of ecstasy many alcoholic drinks last night. Also reports that he smoked marijuana. Denies other drug use. Reports that "I just do not feel good." Appears to be slightly tachycardic upon arrival. Reports that the operation was done through femoral artery 3 years ago and he has not follow-up with coal cager since. Patient reports that he has been told that he has high blood pressure several times however never took medication. Denies tobacco smoke. Reports that he normally does not drink alcohol on daily basis drinks. Reports that he was at his friend's that he decided to try something new. Also complains of few bouts of nonbloody emesis, abdominal pain, denying any diarrhea constipation. Denies cough or congestion. Patient also reports that has a stent placed, has a history of depression with psychotic features was prescribed Zoloft and Seroquel years ago however stopped taking both Zoloft and Seroquel 1 year ago on his own. Patient has not seen his psychiatrist in over 1 year. 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 Patient History Past Medical History: see triage record Past Surgical History: none Pertinent Family History: none Social History: Reports: drug use - Ecstasy Immunizations: UTD Reviewed Nursing Documentation: PMH: Agreed; PSxH: Agreed Nursing Documentation-PMH Past Medical History: No History, Except For Hx Cardiac Problems: Yes - aorta surgery Hx Hypertension: Yes Hx Asthma: No - pneumonia Review of Systems All Other Systems: negative except mentioned in HPI Physical Exam Vital Signs Date Time Temp Pulse Resp B/P (MAP) Pulse Ox O2 Delivery O2 Flow Rate FiO2 07/30/20 13:04 99.1 114 16 130/84 (99) 96 Room Air Sp02 EP Interpretation: reviewed, abnormal - Slightly tachycardic General Appearance: alert, GCS 15, non-toxic, mild distress Head: normocephalic, atraumatic Eyes: bilateral eye normal inspection, bilateral eye PERRL ENT: hearing grossly normal, normal pharynx, no angioedema, normal voice Neck: full range of motion, supple/symm/no masses Respiratory: chest non-tender, lungs clear, normal breath sounds, no rhonchi, no respiratory distress, no retraction, no accessory muscle use, speaking full sentences Cardiovascular #1: regular rate, rhythm, no edema, no murmur Cardiovascular #2: 2+ carotid (R), 2+ carotid (L), 2+ radial (R), 2+ radial (L), 2+ dorsalis pedis (R), 2+ dorsalis pedis (L) Gastrointestinal: normal bowel sounds, non tender, soft, non-distended, no guarding, no rebound Rectal: deferred Genitourinary: no CVA tenderness Musculoskeletal: back normal, no calf tenderness Neurologic: alert, motor strength/tone normal, oriented x3, sensory intact, responsive, speech normal Psychiatric: judgement/insight normal, memory normal, mood/affect normal, no suicidal/homicidal ideation Skin: no rash Lymphatic: no adenopathy Medical Decision Making PA Attestation All diagnoses and treatment plans were reviewed and discussed with my supervising physician Dr. Hooper Diagnostic Impression: Primary Impression: Amphetamine abuse Additional Impressions: Marijuana abuse Palpitation ER Course 30-year-old male with history of ruptured aortic reports having a "heart surgery 3 years ago" and hypertension noncompliant with medication here complaining of chest pain or palpitation after taking the pill of ecstasy many alcoholic drinks last night. Also reports that he smoked marijuana. Denies other drug use. Reports that "I just do not feel good." Appears to be slightly tachycardic upon arrival. Reports that the operation was done through femoral artery 3 years ago and he has not follow-up with coal cager since. Patient reports that he has been told that he has high blood pressure several times however never took medication. Denies tobacco smoke. Reports that he normally does not drink alcohol on daily basis drinks. Reports that he was at his friend's that he decided to try something new. Also complains of few bouts of nonbloody emesis, abdominal pain, denying any diarrhea constipation. Denies cough or congestion. Patient also reports that has a stent placed, has a history of depression with psychotic features was prescribed Zoloft and Seroquel years ago however stopped taking both Zoloft and Seroquel 1 year ago on his own. Patient has not seen his psychiatrist in over 1 year. Denies SI and HI Ddx considered but are not limited to: [place], Angina, COPD, GERD, Vital signs: are WNL, pt. is afebrile H&PE are most consistent with amphetamine abuse, marijuana abuse, palpitation ORDERS: EKG, Chest XR, cardiac labs ED INTERVENTIONS: Zofran, Pepcid, Toradol, NS bolus DISCHARGE: At this time pt. is stable for d/c to home. Will provide printed patient care instructions, and any necessary prescriptions. Care plan and follow up instructions have been discussed with the patient prior to discharge. Avoid drug use, avoid drinking alcohol, follow-up with your coal cager, increase oral hydration, worsening symptoms return to the emergency room EKG Diagnostic Results Rate: normal Rhythm: NSR ST Segments: no acute changes Other Impression No acute ST changes ASA given to the pt in ED: No Chest X-Ray Diagnostic Results Chest X-Ray Diagnostic Results : Chest X-Ray Ordered: Yes # of Views/Limited/Complete: 1 View Indication: Chest Pain EP Interpretation: Yes PA Xray: Interpretation reviewed, by supervising MD, and agrees with findings. Interpretation: no consolidation, no effusion, no pneumothorax Impression: No acute disease Electronically Signed by: Mirza Cabrera PA-C Last Vital Signs Date Time Temp Pulse Resp B/P (MAP) Pulse Ox O2 Delivery O2 Flow Rate FiO2 07/30/20 13:04 99.1 114 16 130/84 (99) 96 Room Air Disposition: HOME, SELF-CARE Condition: Stable Referrals: [facility],REFERRING (PCP) Patient Instructions: Alcohol Use Disorder, Cannabis Use Disorder, Stimulant Use Disorder-Methamphetamines Additional Instructions: Avoid drug use, avoid drinking alcohol, follow-up with your coal cager, increase oral hydration, worsening symptoms return to the emergency room Mirza Caldwell Jul 30, 2020 13:53
[2020-07-30 13:54] LABS: INR 0.9 (0.9-1.1)
[2020-07-30 13:58] LABS: ANION GAP 12 mmol/L (5-15); BLOOD UREA NITROGEN 20 mg/dL (7-18); CALCIUM 9.7 MG/DL (8.5-10.1); CARBON DIOXIDE 25 MMOL/L (21-32); CHLORIDE 98 MMOL/L (98-107); CREATININE 1.3 MG/DL (0.55-1.30); POTASSIUM 4.6 MMOL/L (3.5-5.1); SODIUM 135 MMOL/L (136-145)
[2020-07-30 14:02] LABS: ALANINE AMINOTRANSFERASE 30 U/L (12-78); ALBUMIN 4.5 G/DL (3.4-5.0); ALKALINE PHOSPHATASE 107 U/L (46-116); ASPARTATE AMINO TRANSFERASE 28 U/L (15-37); BILIRUBIN,TOTAL 0.6 MG/DL (0.2-1.0)
--- NOTE | 2020-07-30 14:07 | Diagnostic Imaging Report ---
EXAM: XR Chest, 1 View CLINICAL HISTORY: SOB TECHNIQUE: Frontal view of the chest. COMPARISON: 11/28/18. FINDINGS: Lungs: Unremarkable. No consolidation. Pleural space: Mild apical pleural thickening is again noted. No pneumothorax. Heart: Unremarkable. No cardiomegaly. Mediastinum: Redemonstrated descending thoracic aortic stent graft. Bones/joints: Unremarkable. IMPRESSION: No evidence of acute pulmonary disease.
[2020-07-30 14:11] VITALS: BP 150/90
[2020-07-30 14:30] VITALS: BP 148/89
== END 2020-07-30 14:33 | disposition home or self-care (01) ==
LOC: EMR 13:15
DX: F15.10 Other stimulant abuse, uncomplicated (principal); F12.10 Cannabis abuse, uncomplicated; R00.2 Palpitations; I10 Essential (primary) hypertension; F10.10 Alcohol abuse, uncomplicated; Y90.0 Blood alcohol level of less than 20 mg/100 ml; Z98.890 Other specified postprocedural states; Z91.14 Patient's other noncompliance with medication regimen
CPT/HCPCS: 36415; 71045; 80053; 80307; 81003; 83690; 83880; 84484; 85025; 85379; 85610; 85730; 93005; 96361; 96374; 96375; G0480; J1885; J2405; J7030; S0028; Z7502; 99284